=== PATIENT | female | born 1965 | race Caucasian/White ===

== ENCOUNTER → 2020-03-16 | Outpatient (CLI) | payer OTHER ==
--- NOTE | 2020-03-17 09:05 | RADIOLOGY REPORT (SQ) ---
EXAM DESCRIPTION: MRI RT LOWER EXTREMITY COMBO IMAGES COMPLETED DATE/TIME: 03/16/2020 6:51 pm REASON FOR STUDY: (M76.71)PERONEAL TENDINITIS, RIGHT LEG M76.71 PERONEAL TENDINITIS, RIGHT LEG COMPARISON: None. TECHNIQUE: Right ankle images acquired and stored on PACS. Multiplanar images include fat sensitive sequences as T1, fluid sensitive sequences as FST2/STIR, cartilage sensitive sequences as FSPD, and g radient echo sequences. Post-contrast sequences. LIMITATIONS: Motion. FINDINGS: BONE MARROW: No alteration of signal to suggest marrow replacement or edema. No occult fra cture. No large osteophytes. EFFUSIONS: Small ankle joint effusion. OSSEOUS ARTICULATIONS: Intact. TALAR DOME AND TIBIAL PLAFOND: Intact. ACHILLES TENDON: Intact without partial or full-thickness tear. No adjacent bursal fluid or edema. TIBIALIS ANTERIOR TENDON: Intact without edema at the 1st MT attachment. TIBIALIS POSTERIOR TENDON: Normal morphology and no edema at the navicular attachment. No tendon perry th fluid. FLEXOR HALLUCIS LONGUS AND FLEXOR DIGITORUM TENDONS: Normal morphology and no tendon sheath fluid. No edema of the os trigonum. PERONEUS LONGUS AND BREVIS TENDON: Accessory peroneus quartus. Split tear of the peroneus brevis. M inimal increased fluid in the tendon sheath. ATFL, CFL, PTFL: Intact. No thickening or signal alteration. No rui-ligamentous fluid. DELTOID LIGAMENT: Visualized components intact. TARSAL TUNNEL: No masses. No muscle atrophy. SINUS TARSI: No fluid. No reactive marrow edema or erosions. PLANTAR FASCIA: No signal alteration or tear. ADJACENT SOFT TISSUES: No masses. OTHER: No abnormal enhancement. IMPRESSION: 1. Split tear of the peroneus brevis. Assessed 3 peroneus quartus. 2. No evidence of stress fracture. 3. Small joint effusion. TECHNICAL DOCUMENTATION: JOB ID: [id number] [employer]- All Rights Reserved Reading location - IP/workstation name: [email or web address]
== END ==
LOC: RAD 17:09
PROVIDERS: ATTEND Preventive Medicine Undersea and Hyperbaric Medicine
DX: M76.71 Peroneal tendinitis, right leg (principal)
CPT/HCPCS: 82565; 73720; A9576